=== PATIENT | female | born 1955 | race Caucasian/White ===

== ENCOUNTER → 2016-08-24 | Day surgery (SDC) | payer BC ==
[2016-07-16 10:25] VITALS: BMI 32.4
[~2016-08-24] MED LIST: BUPIVACAINE 0.25%-EPINEPHRINE 1:200,000 30 ML ONE; CEFAZOLIN 1 GM VIAL IV ONE; CEFAZOLIN 1 GM VIAL ONE; DEXAMETHASONE 4 MG/ML VIAL IV ONE; DIBUCAINE OINTMENT 1 OZ TUBE TOP ONE; EPHEDrine 50 MG/ML VIAL IM ONE; FENTANYL 100 MCG/2 ML VIAL IV ONE; FENTANYL 100 MCG/2 ML VIAL IV PRN; FENTANYL 100 MCG/2 ML VIAL ONE; HYDROmorphone 1 MG INJECTION IV PRN; LABETALOL 20 MG/4 ML SYRINGE IV PRN; MEPERIDINE 25 MG/ML TUBEX IV PRN; METHYLENE BLUE 10 MG/ML VIAL ONE; MIDAZOLAM 2 MG/2 ML VIAL IV ONE; Metronidazole 500 mg/100 ml 500 MG/100 ML RTU IV ONE; ONDANSETRON HCL 4 MG ODT TAB PO PRN; ONDANSETRON HCL 4 MG/2 ML VIAL IV ONE; ONDANSETRON HCL 4 MG/2 ML VIAL IV PRN; PHENYLEPHRINE 10 MG/ML VIAL IC ONE; hydrALAZINE 20 MG/ML VIAL IV PRN
--- NOTE | 2016-08-24 06:54 | HIM.ANES ---
Anesthesia Evaluation & Plan Diagnoses: DYSPLASIA OF ANUS (08/24/16) Consented Procedure: exam under anesthesia with high resolution anoscopy and excision of anal intraepithelial neoplasia - Focused Review of Systems Cardiac History: Yes: Hx Hypertension, Hx Cardiac Disorders HEENT: Yes: Hx Vision Problem (WEARS CONTACTS), Other HEENT Problems Hx Other HEENT Surgery: LEFT EYE TUMOR REMOVAL Hx Other HEENT Problems: L eye tumor removal Respiratory: Yes: Hx Asthma, Patient at risk for Sleep apnea (Based on CECIL tool) , Hx Snoring No: Hx Pneumonia Gastrointestinal: Yes: Hx Gastroesophageal Reflux Disease, Hx Gastrointestinal Disorders, Hx Chronic Constipation, Hx Diverticulosis (PER COLONOSCOPY REPORT), Hx Colonoscopy (05/2015; POLYPS, 06/2016 RECTAL POLYP) Neurological/Musculoskeletal: No: Hx Neurological Disorders Psychological: No Hx Mental/Emotional Disorders Blood/Autoimmune: Yes: Hx Anemia No: Hx Blood Transfusions, Hx AIDS, Hx Hepatitis (type) Smoking Status: Never smoker Surgical History: Yes: Knee (LEFT TOTAL KNEE, A/R RIGHT KNEE) Other Surgical History: LEFT EYE TUMOR REMOVAL 06/2015 RECTAL POLYP REMOVED TUBAL LIGATION - Focused Physical Exam NPO since: 08/23/152129 Mallampati: Class II Thyromental Distance: Greater than 3 Neck: Full Range of Motion Dental: Normal - no significant findings Cardiovascular/Chest: Normal Respiratory: Lungs clear Any problems with anesthesia, including nausea and vomiting?: Yes (N/V, DIFFICULT INTUBATION) Any relatives with a history of Malignant Hyperthermia?: No Beta Nancy given (if appropriate): N/A Does the patient have a history of Motion Sickness-: No Other: Allergies Allergy/AdvReac Type Severity Reaction Status Date / Time No Known Allergies Allergy Verified 08/24/16 06:10 Home Medications Medication Instructions Recorded Last Taken Type Albuterol Sulfate [Proventil 0.5 ml NEB DIR PRN 06/14/15 1 Year Ago History (Concentrate)] Ergocalciferol (Vitamin D2) 50,000 units PO MONTHLY 06/14/15 1 Week Ago History [Vitamin D] Montelukast Sodium [Singulair] 10 mg PO DAILY 06/14/15 08/24/16 05:15 History Valsartan/Hydrochlorothiazide 1 each PO DAILY 06/14/15 08/24/16 05:15 History [Diovan Hct 160-12.5 mg Tab] Clotrimazole & Betamethasone 1 inch TOP BID PRN 07/15/16 2 Months Ago History [Lotrisone Cream] Lansoprazole [Prevacid] 1 cap PO DAILY 07/15/16 08/24/16 05:15 History Budesonide/Formoterol Fumarate 2 puff INH BID 08/24/16 1 Year Ago History [Symbicort 80-4.5 Mcg Inhaler] Height and Weight Patient's height 5 ft 3 in Patient's weight 83.007 kg BMI 32.4 Vital Signs Temperature 97.2 F L 08/24/16 06:16 Pulse Rate 74 08/24/16 06:16 Respiratory Rate 16 08/24/16 06:16 Blood Pressure 131/95 08/24/16 06:16 Pulse Oxygen Saturation 97 08/24/16 06:16 - Anesthetic Plan Anesthesia Type: General ASA Class: 2 -: I have examined this patient and reviewed the medical record. The patient has been assessed prior to anesthesia. Risks and benefits of anesthesia and anesthetic technique options have been discussed and all questions answered. The patient accepts the risk and desires me to proceed with the planned anesthetic.
[2016-08-24] MEDS: FENTANYL 100 MCG/2 ML VIAL IV PRN ×2 (08:23→08:45)
--- NOTE | 2016-08-24 08:27 | HIMOPRPT ---
DATE OF PROCEDURE: 08/24/16 PREOPERATIVE DIAGNOSES: Anal intraepithelial neoplasia. POSTOPERATIVE DIAGNOSES: Same, anal mass. PROCEDURES: Exam under anesthesia with high-resolution anoscopy and transanal excision of anorectal mass, pathology pending. SURGEON: James Flores MD ANESTHESIA: General. COMPLICATIONS: None. ESTIMATED BLOOD LOSS: Minimal. ANTIBIOTICS: Preoperative antibiotics given. INDICATIONS: The patient is a pleasant female whose had known anal intraepithelial neoplasia. She had had this biopsied and treated in the past and recently underwent a colonoscopy were a biopsy was done that showed again anal intraepithelial neoplasia. We have been asked to evaluate and treat her. We explained the risk and benefits of surgery including the risk of infection, bleeding and anesthesia as well as the unforeseen complications. She had understood and agreed and was brought for the above-mentioned procedure. OPERATIVE NOTE: The patient was brought to the operating room and placed on the operating table in the supine position. After adequate amount of general anesthesia she was positioned in stirrups and prepped and draped in sterile manner. We assured that there was no undue pressure on her legs. When given the okay by anesthesia after appropriate time-out assured the antibiotics had been given we went ahead and performed examination under anesthesia. The area was treated with ascetic acid and high-resolution anoscopy was performed. The only area of concern was at the 10 o'clock position and here there was actual a mass and some whitening of the tissue around it. The mass was approximately 8 mm x 3 mm. At that point we felt that this was the only area of concern but wound wanted to excise this mass. At that point a retractor was placed and we went ahead used sharp scalpel dissection and Bovie cautery to excise an elliptical piece of tissue thick contained this area of concern and mass. This was taken off the muscle without any difficulties. At that point we went ahead and made sure of hemostasis. A 3 0 chromic catgut suture was then used to close the defect. No other problems were noted. With hemostasis assured dibucaine ointment was applied and the patient was then awoke in and taken recover room in excellent condition with correct sponge counts and needle counts.
[2016-08-24 09:43] VITALS: TEMP 97.3
[2016-08-24 10:18] VITALS: PULSE 60
[2016-08-24 15:07] VITALS: BP 122/67
--- NOTE | 2016-08-24 15:07 | SC.ANESPOS ---
Post-Anesthesia Note LOC: Fully Awake Post-Anesthesia Assessment: Awake, Returned to Baseline, Hemodynamically Stable , Pain Control Adequate Phase I & II Recovery Complete: Yes Apparent Anesthesia Complication: No : N PACU Discharge Time: 09:35 - Vital Signs Blood Pressure: 122/67 Pulse: 60 Resp Rate: 18 O2 Sat: 100 Temp: 97.3 F - Comments Anesthesia Discharge Time Report Time 09:35
== END ==
LOC: SDC 05:48
PROVIDERS: ATTEND Surgery
PROC: 0DBQ8ZZ Excision of Anus, Via Natural or Artificial Opening Endoscopic (ICD-10-PCS; principal; 2016-08-24 07:15)
DX: D01.3 Carcinoma in situ of anus and anal canal (principal); I10 Essential (primary) hypertension; J45.909 Unspecified asthma, uncomplicated; K21.9 Gastro-esophageal reflux disease without esophagitis; G47.30 Sleep apnea, unspecified; Z79.899 Other long term (current) drug therapy
CPT/HCPCS: 46607; J0690; J1100; J2250; J2370; J2405; J3010; J3490; Q9968